=== PATIENT | male | born 1990 | race African-American/Black ===

== ENCOUNTER 2017-03-05 16:24 | Emergency (ER) | payer SELFPAY ==
[2017-03-05 16:43] VITALS: BMI 25.2
[2017-03-05 16:46] VITALS: RESP 18
[2017-03-05] MEDS ORDERED: Sodium Chloride 0.9% 1,000 ML IV ONE (19:14)
--- NOTE | 2017-03-05 19:23 | C.PDOC ---
History Of Present Illness 26 y/o male presents to the ER complaining of abdominal pain which began yesterday. Patient reports he had [place] food, cake, and pizza for dinner two days ago. He relates sudden onset of L lower abd pain radiating to L flank yesterday. The pain was 9/10. He reports that he just has pain in the left upper quadrant and the flank today and the pain is 7/10. Patient reports that he vomited today around 1 pm after he had rice. He denies any diarrhea and constipation.He states that he took Dicyclomine 20 mg and 2 Cipros which provided no relief. He states that he took Ibuprofen which provided some relief and Antacid. Time Seen by Provider: 03/05/17 18:51 Chief Complaint (Nursing): Abdominal Pain History Per: Patient History/Exam Limitations: no limitations Onset/Duration Of Symptoms: Days Current Symptoms Are (Timing): Still Present Severity: Moderate Location Of Pain/Discomfort: LUQ Associated Symptoms: Vomiting. denies: Diarrhea, Constipation Past Medical History Reviewed: Historical Data, Nursing Documentation, Vital Signs Vital Signs: Last Vital Signs Temp 99.2 F 03/05/17 19:56 Pulse 66 03/05/17 19:56 Resp 18 03/05/17 19:56 BP 136/79 03/05/17 19:56 Pulse Ox 99 03/05/17 21:56 - Medical History PMH: No Chronic Diseases Surgical History: No Surg Hx Family History: States: No Known Family Hx - Social History Hx Alcohol Use: No Hx Substance Use: No - Immunization History Hx Tetanus Toxoid Vaccination: No Hx Influenza Vaccination: No Hx Pneumococcal Vaccination: No Review Of Systems Except As Marked, All Systems Reviewed And Found Negative. Constitutional: Negative for: Fever, Chills Gastrointestinal: Positive for: Vomiting, Abdominal Pain (pain in the left upper quadrant). Negative for: Diarrhea, Constipation Physical Exam - Physical Exam Appears: Non-toxic, No Acute Distress Skin: Normal Color, Warm Head: Atraumatic, Normacephalic Eye(s): bilateral: Normal Inspection Nose: Normal Oral Mucosa: Moist Neck: Supple Cardiovascular: Rhythm Regular Respiratory: Normal Breath Sounds, No Accessory Muscle Use Gastrointestinal/Abdominal: Normal Exam, Soft, Tenderness (tendernesss in the left upper quadrant) Rectal: Other (Rectal exam done using urojet, no stool in vault found.) Back: No CVA Tenderness Extremity: Normal ROM Neurological/Psych: Oriented x3, Normal Speech, Normal Cognition, Normal Motor, Normal Sensation ED Course And Treatment - Laboratory Results Result Diagrams: 03/05/17 19:41 03/05/17 19:41 Lab Interpretation: Abnormal (UA 5 RBC's) O2 Sat by Pulse Oximetry: 99 (RA) Pulse Ox Interpretation: Normal Reevaluation Time: 22:27 Reassessment Condition: Improved Medical Decision Making Medical Decision Making: Impression: Abdominal Plan Plan: --Labs --X-Rays --Toradol 30 mg IVP --Zofran 4 mg IVP --IV Fluids 2230: Tramadol one tab PO Disposition Doctor Will See Patient In The: Office Counseled Patient/Family Regarding: Studies Performed, Diagnosis - Disposition Disposition: HOME/ ROUTINE Disposition Time: 22:28 Condition: GOOD Forms: [facility] (I[place]ic) - Clinical Impression Clinical Impression: Renal colic on left side - Scribe Statement The provider has reviewed the documentation as recorded by the Ford Meredith Provider Attestation: All medical record entries made by the Ford were at my direction and personally dictated by me. I have reviewed the chart and agree that the record accurately reflects my personal performance of the history, physical exam, medical decision making, and the department course for this patient. I have also personally directed, reviewed, and agree with the discharge instructions and disposition.
[2017-03-05 19:41] LABS: RBC URINE 5 /hpf (0-3); TRANSITIONAL EPITHIAL < 1 /hpf (0-3); URINE BACTERIA RARE (<OCC); URINE BILIRUBIN NEGATIVE (NEGATIVE); URINE COLOR Yellow (YELLOW); URINE GLUCOSE (UA) NORMAL (Normal); URINE KETONE 1+ mg/dL (NEGATIVE); URINE LEUKOCYTE ESTERASE NEG Leu/uL (Negative); URINE PROTEIN 1+ mg/dL (NEGATIVE); URINE UROBILINOGEN NORMAL mg/dL (0.2-1.0); WBC URINE 1 /hpf (0-5)
[2017-03-05 19:45] LABS: URINE BLOOD 1+ (NEGATIVE)
[2017-03-05 19:45] LABS: BASO % 0.3 % (0.0-2.0); EOS % 0.4 % (0.0-4.0); HEMATOCRIT 47.3 % (35.0-51.0); LYMPH # 1.7 K/uL (1.0-4.3); MEAN CELL VOLUME 87.7 fL (80.0-94.0); MEAN CORPUSCULAR HEMOGLOBIN 30.1 pg (27.0-31.0); MEAN CORPUSCULAR HGB CONC 34.3 g/dL (33.0-37.0); MEAN PLATELET VOLUME 7.3 fL (7.2-11.7); MONO # 1.1 K/uL (0.0-0.8); MONO % 8.2 % (0.0-10.0); NRBC % 0.1 % (0.0-2.0); RED CELL DISTRIBUTION WIDTH 12.8 % (11.5-14.5); WHITE BLOOD COUNT 13.8 K/uL (4.8-10.8)
[2017-03-05] MEDS ORDERED: Sodium Chloride 0.9% 1,000 ML ONE (19:48)
[2017-03-05 19:58] LABS: ALB/GLOB RATIO 1.3 (1.0-2.1); BILIRUBIN,TOTAL 1.1 mg/dL (0.2-1.3); CALCIUM 8.7 mg/dl (8.6-10.4); POTASSIUM 4.2 mmol/L (3.6-5.2)
[2017-03-05] MEDS ORDERED: Lidocaine 2% Jelly (Uro-Jet) TOP STA (20:01)
[2017-03-05] MEDS ORDERED: Lidocaine 2% Jelly (Uro-Jet) ONE (20:08)
[2017-03-05] MEDS ORDERED: Iohexol 240 (50 ml) PO STA (20:30)
[2017-03-05] MEDS ORDERED: Iohexol 350mg/ml 100 ML ONE (20:48)
[2017-03-05 22:42] VITALS: BP 129/74; PULSE 80; TEMP 98.5; O2SAT 100
--- NOTE | 2017-03-06 07:09 | RAD ---
PROCEDURE: Radiographs of the chest and abdomen (obstructive series) HISTORY: abd pain COMPARISON: No prior. TECHNIQUE: AP radiograph of the chest, with upright and supine radiographs of the abdomen. FINDINGS: CHEST: Lungs: Clear. Cardiovascular: Normal size heart. No pulmonary vascular congestion. Pleura: No pleural fluid. No pneumothorax. Other findings: None. ABDOMEN AND PELVIS: Bowel: Numerous air-fluid levels seen within small bowel loops as well as the large bowel. Consider possible developing ileus pattern. The bowel does not appear appears significantly distended at this time. Free air: None. Bones: Unremarkable. Other findings: None. IMPRESSION: Unremarkable chest radiograph. Consider possible ileus pattern affecting bowel with distal large bowel obstruction not favored. No free intraperitoneal gas. Please see separate abdomen pelvis CT exam also performed 03/05/2017 subsequently shielded separate findings
--- NOTE | 2017-03-06 09:04 | CT ---
PROCEDURE: CT Abdomen and Pelvis with contrast HISTORY: ? bowel obstruction COMPARISON: Abdomen obstructive 03/05/2017. TECHNIQUE: Following oral and intravenous contrast administration, a CT examination of the abdomen and pelvis performed from the domes of the diaphragms to the symphysis pubis with reformatted datasets provided not only axial but also sagittal and coronal series. Contrast dose: Omnipaque 350, 100 cc. Radiation dose: Total exam DLP = 406.42 mGy-cm. This CT exam was performed using one or more of the following dose reduction techniques: Automated exposure control, adjustment of the mA and/or kV according to patient size, and/or use of iterative reconstruction technique. FINDINGS: LOWER THORAX: Linear atelectasis is seen in the bilateral bases versus fibrosis with the bases otherwise unremarkable. LIVER: Unremarkable. No gross lesion or ductal dilatation. GALLBLADDER AND BILE DUCTS: Unremarkable. PANCREAS: Unremarkable. No gross lesion or ductal dilatation. SPLEEN: Unremarkable. ADRENALS: Unremarkable. No mass. KIDNEYS AND URETERS: There is a delayed left renal nephrogram with mild left hydronephrosis also identified. Trace left perinephric reaction is present the left ureter is also dilated moderately. A 2 mm radiodense calculus identified either instead of the lumen at the urinary bladder base or at the distal portion of the left greater vessel junction as the etiology of left-sided obstructive changes. No right-sided hydronephrosis. A punctate intrarenal calculus is not excluded at the upper midpole left kidney versus early excretion of iodinated contrast material. VASCULATURE: Unremarkable. No aortic aneurysm. BOWEL: Liquified fecal material seen throughout the large bowel suspicious for diarrhea. Opacified small bowel loops appear unremarkable throughout. APPENDIX: Normal appendix. PERITONEUM: Unremarkable. No free fluid. No free air. LYMPH NODES: Unremarkable. No enlarged lymph nodes. BLADDER: Distended and smooth/thin walled with calculus at inferior left lumen/ left base versus left UVJ as discussed above. REPRODUCTIVE: Unremarkable. BONES: No acute fracture. OTHER FINDINGS: None. IMPRESSION: 1. Left-sided obstructive uropathy appears mild at the left kidney and moderate the left ureter with delayed left nephrogram. The findings caused by 2 mm calculus obstructing the distal left UVJ or possibly expelled into the left side of the urinary bladder base at this time. One or 2 punctate intrarenal calculi not excluded the left kidney. None are seen at the right. No right hydronephrosis. 2. Further margin of the remaining abdominal and pelvic viscera is limited by lack of contrast agents but appears unremarkable as imaged. Concordant preliminary report from [facility], 03/05/2017.
== END 2017-03-05 23:02 | disposition home or self-care (01) ==
LOC: C.ER 16:24
DX: N23 Unspecified renal colic (principal)
CPT/HCPCS: 74022; 74177; 80053; 81001; 83690; 85025; 96361; 96374; 96375; 99285; J1885; J2405; J7040; Q9966; Q9967